=== PATIENT | female | born 1980 | race American Indian/Alaskan Native ===

== ENCOUNTER 2018-03-30 15:23 | Inpatient (IN) | payer MEDICAID, OTHER ==
[2018-03-30] MEDS ORDERED: NACL 0.9% 1000 ML 1,000 ML IV ONE (15:39)
[2018-03-30 15:46] LABS: Basophils # (Auto) 0.1 K/mm3 (0.0-0.1); Basophils % (Auto) 0.8 % (0.0-1.8); Eosinophils # (Auto) 0.1 K/mm3 (0.0-0.4); Hematocrit 35.3 % (30.3-42.9); Hemoglobin 11.3 gm/dl (10.1-14.3); Lymphocytes # (Auto) 3.4 K/mm3 (1.2-5.4); Lymphocytes % (Auto) 27.6 % (13.4-35.0); Mean Corpuscular HGB Conc 32 % (30-34); Mean Corpuscular Volume 71 fl (79-97); Monocytes # (Auto) 0.8 K/mm3 (0.0-0.8); Monocytes % (Auto) 6.5 % (0.0-7.3); Platelet Count 329 K/mm3 (140-440); Red Cell Distribution Width 18.3 % (13.2-15.2)
[2018-03-30 15:52] LABS: Mean Corpuscular Hemoglobin 23 pg (28-32)
[2018-03-30 16:00] LABS: BUN/Creatinine Ratio 7; Blood Urea Nitrogen 6 mg/dL (7-17); Calcium 9.5 mg/dL (8.4-10.2); Hemolysis Index 2
--- NOTE | 2018-03-30 16:03 | Cat Scan Report ---
FINAL REPORT EXAM: CT HEAD/BRAIN WO CON HISTORY: neuro deficits < 6hrs or sx present upon awakening COMPARISON: None. TECHNIQUE: Multiple contiguous axial images were obtained from the skullbase to the vertex without administration of IV contrast. FINDINGS: Brain volume is normal for age. No hemorrhage, mass, mass effect, or midline shift. Ventricles are not enlarged. Normal basal cisterns. No pathologic extra-axial fluid collection. No evidence of acute infarct. No skull fracture. Mucosal thickening of the maxillary sinuses, with polyp versus retention cyst in the right maxillary sinus. Bilateral orbits are grossly intact. IMPRESSION: No acute intracranial abnormality. Mucosal thickening of the maxillary sinuses, with polyp versus retention cyst in the right maxillary sinus. Negative acute findings were discussed with Dr. Cummings by [facility] operations business support associate at 3:59 p.m., Eastern standard time, on 03/30/2018.
[2018-03-30 16:04] LABS: INR 0.94 (0.87-1.13)
[2018-03-30 16:17] LABS: Partial Thromboplastin Time 24.2 Sec. (24.2-36.6)
--- NOTE | 2018-03-30 16:44 | Cat Scan Report ---
FINAL REPORT EXAM: CT ANGIO HEAD HISTORY: stoke symptoms COMPARISON: CT of the performed on 03/30/2018 TECHNIQUE: Multiple contiguous axial images were obtained through the head after administration of IV contrast. 3D reformatted maximal intensity projection images were available for review. FINDINGS: The bilateral internal carotid arteries are patent and normal in caliber. There is no evidence of stenosis or aneurysm. The anterior cerebral arteries and middle cerebral arteries are patent and normal in caliber. The basilar artery is patent and normal in caliber. The bilateral posterior cerebral arteries are patent and normal in caliber. IMPRESSION: Normal CT angiogram of the head.
--- NOTE | 2018-03-30 16:49 | Cat Scan Report ---
FINAL REPORT EXAM: CT ANGIO NECK HISTORY: stoke symptoms COMPARISON: None. TECHNIQUE: Multiple contiguous axial images were obtained through the neck after administration of IV contrast. 3D reconstructions of the vascular structures was also performed. FINDINGS: There is a variant branching pattern of the aortic arch, with an abdomen and right subclavian artery, which courses posterior to the esophagus. The right common carotid artery is patent and normal in caliber. The right internal and external carotid arteries are patent without stenosis, dissection, or aneurysm. There is no significant atherosclerotic disease. The left common carotid artery is patent and normal in caliber. The left internal and external carotid arteries are patent without stenosis, dissection, or aneurysm. There is no significant atherosclerotic disease. The bilateral vertebral arteries are patent. There is a left dominant system. IMPRESSION: Normal CT angiogram of the neck. Apparent right subclavian artery.
--- NOTE | 2018-03-30 19:38 | Emergency Department Report ---
ED Neuro Deficit HPI - General Chief Complaint: Neuro Symptoms/Deficit Stated Complaint: HEADACHE Time Seen by Provider: 03/30/18 15:37 Source: patient Mode of arrival: Ambulatory Limitations: No Limitations - History of Present Illness Initial Comments: Ms. Orozco is 37 yo female who had the sudden onset of right facial numbness, right arm numbness and dysarthia. She had slurred speech. The symptoms occurred suddenly while at a gas station at 1415. No significant medical hx. She drinks alcohol 4 times a week. She did drink whiskey this morning since it was her day off. She does smoke marijuana. Mother had hx of stroke at age 39. She had left neck posterior pain which has resolved. No headache. -: Sudden Location: speech, right face, right arm Presenting Symptoms: Present: Unable to Speak Clearly History of same: No Place: other (retail place) Severity: mild Quality: numb Improves With: time On Anticoagulants: No Context: sudden onset - Related Data Allergies/Adverse Reactions: Allergies Allergy/AdvReac Type Severity Reaction Status Date / Time Penicillins Allergy Unknown Verified 03/30/18 15:28 ED Review of Systems ROS: Stated complaint: HEADACHE Other details as noted in HPI Comment: All other systems reviewed and negative Constitutional: denies: fever, malaise Respiratory: denies: cough Cardiovascular: denies: chest pain ED Past Medical Hx - Past Medical History Previous Medical History?: No - Surgical History Past Surgical History?: Yes Additional Surgical History: - Social History Smoking Status: Current Every Day Smoker Substance Use Type: Alcohol ED Neuro Physical Exam - General Limitations: No Limitations General appearance: alert, in no apparent distress Suspected Stroke: Yes - Head Head exam: Present: atraumatic, normocephalic - Eye Eye exam: Present: normal appearance - ENT ENT exam: Present: mucous membranes moist - Neck Neck exam: Present: normal inspection. Absent: tenderness, meningismus - Respiratory Respiratory exam: Present: normal lung sounds bilaterally. Absent: respiratory distress, wheezes, rales, rhonchi - Cardiovascular Cardiovascular Exam: Present: regular rate, normal rhythm, normal heart sounds. Absent: systolic murmur, diastolic murmur, rubs, gallop - GI/Abdominal GI/Abdominal exam: Present: soft, normal bowel sounds. Absent: distended, tenderness, guarding, rebound - Extremities Exam Extremities exam: Present: normal inspection. Absent: full ROM, tenderness - Back Exam Back exam: Present: normal inspection - Neurological Exam Neurological exam: Present: alert, oriented X3 - NIHSS Assessment Interval: Baseline 1a. Level of Consciousness: alert 1b. LOC Questions: answers correctly 1c. LOC Commands: performs tasks correctly 2. Best Gaze: normal 3. Visual: no visual loss 4. Facial Palsy: normal symmetrical movement 5b. Motor Arm Right: no drift 5a. Motor Arm Left: no drift 6a. Motor Leg Left: no drift 6b. Motor Leg Right: no drift 7. Limb Ataxia: absent 8. Sensory: normal 9. Best Language: no aphasia 10. Dysarthria: normal 11. Extinction/Inattention: no abnormality Total Score: 0 Stroke Severity: No Stroke Symptoms - Psychiatric Psychiatric exam: Present: normal affect, normal mood - Skin Skin exam: Present: warm, dry, intact, normal color. Absent: rash ED Course Vital Signs 03/30/18 03/30/18 03/30/18 15:25 16:06 16:10 Temperature 98.9 F Pulse Rate 109 H 82 Respiratory 18 16 16 Rate Blood Pressure 123/75 Blood Pressure 125/69 [Right] O2 Sat by Pulse 98 100 Oximetry - Lab Data Result diagrams: 03/30/18 15:37 03/30/18 15:37 Lab Results 03/30/18 03/30/18 03/30/18 Range/Units 15:28 15:37 15:37 WBC 12.1 H (4.5-11.0) K/mm3 RBC 5.00 (3.65-5.03) M/mm3 Hgb 11.3 (10.1-14.3) gm/dl Hct 35.3 (30.3-42.9) % MCV 71 L (79-97) fl MCH 23 L (28-32) pg MCHC 32 (30-34) % RDW 18.3 H (13.2-15.2) % Plt Count 329 (140-440) K/mm3 Lymph % (Auto) 27.6 (13.4-35.0) % Wise % (Auto) 6.5 (0.0-7.3) % Eos % (Auto) 1.0 (0.0-4.3) % Baso % (Auto) 0.8 (0.0-1.8) % Lymph # 3.4 (1.2-5.4) K/mm3 Wise # 0.8 (0.0-0.8) K/mm3 Eos # 0.1 (0.0-0.4) K/mm3 Baso # 0.1 (0.0-0.1) K/mm3 Seg Neutrophils % 64.1 (40.0-70.0) % Seg Neutrophils # 7.8 H (1.8-7.7) K/mm3 PT 13.1 (12.2-14.9) Sec. INR 0.94 (0.87-1.13) APTT 24.2 (24.2-36.6) Sec. Thrombin Time (15.1-19.6) Sec. Sodium (137-145) mmol/L Potassium (3.6-5.0) mmol/L Chloride (98-107) mmol/L Carbon Dioxide (22-30) mmol/L Anion Gap mmol/L BUN (7-17) mg/dL Creatinine (0.7-1.2) mg/dL Estimated GFR ml/min BUN/Creatinine Ratio % Glucose (65-100) mg/dL POC Glucose 88 (70-105) Calcium (8.4-10.2) mg/dL Troponin T (0.00-0.029) ng/mL HCG, Qual (Negative) Plasma/Serum Alcohol (0-0.07) % 03/30/18 03/30/18 03/30/18 Range/Units 15:37 15:37 15:48 WBC (4.5-11.0) K/mm3 RBC (3.65-5.03) M/mm3 Hgb (10.1-14.3) gm/dl Hct (30.3-42.9) % MCV (79-97) fl MCH (28-32) pg MCHC (30-34) % RDW (13.2-15.2) % Plt Count (140-440) K/mm3 Lymph % (Auto) (13.4-35.0) % Wise % (Auto) (0.0-7.3) % Eos % (Auto) (0.0-4.3) % Baso % (Auto) (0.0-1.8) % Lymph # (1.2-5.4) K/mm3 Wise # (0.0-0.8) K/mm3 Eos # (0.0-0.4) K/mm3 Baso # (0.0-0.1) K/mm3 Seg Neutrophils % (40.0-70.0) % Seg Neutrophils # (1.8-7.7) K/mm3 PT (12.2-14.9) Sec. INR (0.87-1.13) APTT (24.2-36.6) Sec. Thrombin Time 16.9 (15.1-19.6) Sec. Sodium 137 (137-145) mmol/L Potassium 3.8 (3.6-5.0) mmol/L Chloride 99.5 (98-107) mmol/L Carbon Dioxide 20 L (22-30) mmol/L Anion Gap 21 mmol/L BUN 6 L (7-17) mg/dL Creatinine 0.9 (0.7-1.2) mg/dL Estimated GFR > 60 ml/min BUN/Creatinine Ratio 7 % Glucose 93 (65-100) mg/dL POC Glucose (70-105) Calcium 9.5 (8.4-10.2) mg/dL Troponin T < 0.010 (0.00-0.029) ng/mL HCG, Qual (Negative) Plasma/Serum Alcohol 0.01 (0-0.07) % 03/30/ Range/Units 15:48 WBC (4.5-11.0) K/mm3 RBC (3.65-5.03) M/mm3 Hgb (10.1-14.3) gm/dl Hct (30.3-42.9) % MCV (79-97) fl MCH (28-32) pg MCHC (30-34) % RDW (13.2-15.2) % Plt Count (140-440) K/mm3 Lymph % (Auto) (13.4-35.0) % Wise % (Auto) (0.0-7.3) % Eos % (Auto) (0.0-4.3) % Baso % (Auto) (0.0-1.8) % Lymph # (1.2-5.4) K/mm3 Wise # (0.0-0.8) K/mm3 Eos # (0.0-0.4) K/mm3 Baso # (0.0-0.1) K/mm3 Seg Neutrophils % (40.0-70.0) % Seg Neutrophils # (1.8-7.7) K/mm3 PT (12.2-14.9) Sec. INR (0.87-1.13) APTT (24.2-36.6) Sec. Thrombin Time (15.1-19.6) Sec. Sodium (137-145) mmol/L Potassium (3.6-5.0) mmol/L Chloride (98-107) mmol/L Carbon Dioxide (22-30) mmol/L Anion Gap mmol/L BUN (7-17) mg/dL Creatinine (0.7-1.2) mg/dL Estimated GFR ml/min BUN/Creatinine Ratio % Glucose (65-100) mg/dL POC Glucose (70-105) Calcium (8.4-10.2) mg/dL Troponin T (0.00-0.029) ng/mL HCG, Qual Negative (Negative) Plasma/Serum Alcohol (0-0.07) % - EKG Data -: EKG Interpreted by Me EKG shows normal: sinus rhythm, axis, intervals, QRS complexes, ST-T waves Rate: normal Interpretation: no acute changes - Radiology Data NO acute process CT head, CTA head/neck WNL - Medical Decision Making Ms. Orozco presents with TIA symptoms which have resolved. D Dr. Lopez neurologist evaluated the patient and recommended admission for TIA workup considering patient is at risk for hypercoagulable disorder. Considering patient had a mother with CVA at young age. TPA not indicated considering patient's her completely resolved symptoms. I do not suspect intracranial hemorrhage such as SAH with fleeting neck pain. Patient also has now developed a mild frontal headache which will be observed. She appears well otherwise. Critical Care Time: Yes Critical care time in (mins) excluding proc time.: 40 Critical care attestation.: If time is entered above; I have spent that time in minutes in the direct care of this critically ill patient, excluding procedure time. 40 minutes of critical care time excluding procedures for use and care to patient. I came to bedside immediately upon patient's arrival. I are spoke with radiology staff. I sopke with radiologist, neurologist and hospitalist to coordinate care. ED Disposition Clinical Impression: TIA (transient ischemic attack) Disposition: OP ADMIT IP TO THIS HOSP Is pt being admited?: Yes Does the pt Need Aspirin: Yes Condition: Stable
[2018-03-30] MEDS ORDERED: BABY ASPIRIN PO ONE (19:47)
[2018-03-30 20:36] LABS: Amphetamine Screen,Urine PRESUMPTIVE NEGATIVE; Benzodiazepines Screen,Urine PRESUMPTIVE NEGATIVE; Cocaine Screen,Urine PRESUMPTIVE NEGATIVE; Methadone Screen,Urine PRESUMPTIVE NEGATIVE; Opiate Screen,Urine PRESUMPTIVE NEGATIVE
[2018-03-30 21:06] LABS: Cannabinoid Screen,Urine PRESUMPTIVE POSITIVE
[2018-03-30] MEDS ORDERED: SODIUM CHLORIDE FLUSH SYRINGE 10 ML IV PRN (23:12)
[2018-03-30] MEDS ORDERED: DILAUDID IV PRN (23:12)
[2018-03-30] MEDS ORDERED: ZOFRAN IV PRN (23:12)
[2018-03-30] MEDS ORDERED: PERCOCET 5/325 PO PRN (23:12)
[2018-03-30] MEDS ORDERED: TYLENOL PO PRN (23:12)
--- NOTE | 2018-03-30 23:12 | Event Note ---
Date: 03/30/18 See dictated history and physical and the reports TIA-resolved MRI in a.m. Neuro consult
[2018-03-30] MEDS ORDERED: SODIUM CHLORIDE FLUSH SYRINGE 10 ML INJ PRN (23:20)
[2018-03-30] MEDS ORDERED: NACL 0.9% 1000 ML 1,000 ML IV SCH (23:45)
[2018-03-31 06:17] LABS: BUN/Creatinine Ratio 6; Blood Urea Nitrogen 5 mg/dL (7-17); Calcium 9.1 mg/dL (8.4-10.2); HDL Cholesterol 41 mg/dL (40-59); Hemolysis Index 7; LDL Cholesterol,Direct 100 mg/dL (50-130)
[2018-03-31 07:09] VITALS: BP 111/60
--- NOTE | 2018-03-31 07:11 | History and Physical Report ---
CHIEF COMPLAINT: Right-sided facial numbness and right arm numbness and slurred speech, which started around 2:15 p.m. HISTORY OF PRESENT ILLNESS: A 37-year-old black female comes in to the Emergency Room for sudden onset of right facial numbness, right arm numbness and slurred speech. Symptoms suddenly appeared while at a gas station at 1415 hours. The patient has no significant past medical history. No hypertension, no diabetes. Her mother had stroke at age 39 and at 55 years. The patient does alcohol on a regular basis and smoke marijuana. No chest pain. Symptoms resolved after 1 hour. The patient says that she is completely normal. No exacerbating or relieving factors. PAST MEDICAL HISTORY: None. PAST SURGICAL HISTORY: . SOCIAL HISTORY: Current everyday smoker. Alcohol 4 days a week, marijuana. FAMILY HISTORY: Hypertension and CVA. REVIEW OF SYSTEMS: Significant for right facial numbness, slurred speech and right arm numbness, which resolved. Otherwise, 14-point review of systems is essentially negative. PHYSICAL EXAMINATION: GENERAL: Middle-aged female, lying in bed comfortably, talking to family on phone. VITAL SIGNS: Temperature is 98.9, pulse is 109, respirations are 18, blood pressure 123/75. HEENT: Unremarkable. No facial droop. NECK: Supple, no carotid artery bruit, no thyromegaly. LUNGS: Clear to auscultation and percussion. Good air entry. CARDIOVASCULAR SYSTEM: S1, S2 heard. No gallop, no murmur, no rub. Apical impulse in left fifth intercostal space in midclavicular line. ABDOMEN: Soft and benign. No hepatosplenomegaly. No guarding, no rigidity. Hernial orifices are normal. EXTREMITIES: Good pedal pulses. No pedal edema. CENTRAL NERVOUS SYSTEM: Alert and oriented x 4, no focal deficits. Mixer Pigment is normal. Strength is 5/5 in all 4 extremities. Cranial nerves are normal. No diplopia. No nasal regurgitation of fluids. SKIN: Normal. LABORATORY DATA: Significant for white count of 12,100, hemoglobin of 11.3, hematocrit of 35.3, platelet count 329,000. Electrolytes are normal, bicarb is slightly low at 20. Troponin is normal. Urine positive for marijuana. Alcohol level was 0.01. ASSESSMENT AND PLAN: 1. Transient ischemic attack. The patient's symptoms definitely qualify for transient ischemic attack, they resolved. The patient also has a strong history of cerebrovascular accidents in the family at early age. Will admit for transient ischemic attack and workup for transient ischemic attack. Will get MRI, MRA and carotid duplex scan and also echocardiogram tomorrow. Discharge on aspirin if negative. Will defer to Neurology whether the patient needs Plavix. 2. Obesity. The patient counseled. 3. Nicotine dependence. The patient counseled. Ten minutes spent in counseling about nicotine, alcohol, and marijuana. 4. Deep venous thrombosis prophylaxis, Lovenox 40 mg subcutaneous daily. JOB# [id number] CRYSTAL/ELVA
[2018-03-31] MEDS ORDERED: ASPIRIN PO SCH (10:00)
[2018-03-31] MEDS ORDERED: LOVENOX SUB-Q SCH (10:00)
[2018-03-31] MEDS ORDERED: PEPCID PO SCH (10:00)
[2018-03-31] MEDS ORDERED: SODIUM CHLORIDE FLUSH SYRINGE 10 ML IV SCH (10:00)
--- NOTE | 2018-03-31 16:17 | Discharge Summary ---
Providers - Providers Date of Admission: 03/30/18 18:58 Attending physician: GERMAINE MCGOWAN 03/30/18 23:12 Consult to Physician [CONS] Routine Comment: Consulting Provider: ROSA SPRINGER Physician Instructions: Reason For Exam: TIA 03/30/18 23:20 Occupational Therapy Evaluate and Treat [CONS] Routine Comment: Reason For Exam: Neuro deficits Physical Therapy Evaluation and Treat [CONS] Routine Comment: Reason For Exam: Neuro deficits Primary care physician: NEUROLOGY SPECIALIST Hospitalization Reason for admission: TIA r/o acute stroke Condition: Stable Hospital course: Final diagnosis: -TIA, stable -Acute metabolic acidosis, resolved -Morbid obesity with BMI of 44.3 On admission patient was placed on stroke protocol. Subsequent plan was to do further investigative testings with MRI brain and MRA head and neck. However patient signed AGAINST MEDICAL ADVICE. She understood the implications of her action. Disposition: [id number] LEFT AGAINST MED ADVICE Time spent for discharge: 25 minutes Core Measure Documentation - Palliative Care Palliative Care/ Comfort Measures: Not Applicable - Core Measures Any of the following diagnoses?: none Exam - Constitutional Vitals: Temp Pulse Resp BP Pulse Ox 98.0 F 72 16 111/60 98 03/31/18 05:57 03/31/18 05:57 03/31/18 05:57 03/31/18 05:57 03/31/18 05:57 General appearance: Present: no acute distress, other (morbidly obese) - EENT Eyes: Present: PERRL, EOM intact ENT: hearing intact, clear oral mucosa - Neck Neck: Present: supple - Respiratory Respiratory effort: normal Respiratory: bilateral: CTA - Cardiovascular Rhythm: regular Heart Sounds: Present: S1 & S2 - Extremities Extremities: No edema - Abdominal General gastrointestinal: Present: soft, non-tender, normal bowel sounds - Neurologic Neurologic: CNII-XII intact Plan Forms: AMA Form
== END 2018-03-31 11:00 | disposition left against medical advice (07) | DRG 69 ==
LOC: ED 15:23 → 4A 18:58 → 3A 23:36
PROVIDERS: ADMIT Internal Medicine; ATTEND Internal Medicine
DX: G45.9 Transient cerebral ischemic attack, unspecified (principal); Z68.41 Body mass index [BMI] 40.0-44.9, adult; E87.2 Acidosis; Z53.21 Procedure and treatment not carried out due to patient leaving prior to being seen by health care provider; E66.01 Morbid (severe) obesity due to excess calories; R47.81 Slurred speech; R29.810 Facial weakness; F17.200 Nicotine dependence, unspecified, uncomplicated; Z82.3 Family history of stroke; Z82.49 Family history of ischemic heart disease and other diseases of the circulatory system; Z98.891 History of uterine scar from previous surgery; Z88.0 Allergy status to penicillin
CPT/HCPCS: 36415; 70450; 70496; 70498; 80048; 80061; 80307; 80320; 82962; 83036; 84484; 84703; 85025; 85610; 85670; 85730; 93005; 93010; 96360; 96361; G0480; J7030; Q9967

== ENCOUNTER 2019-11-23 12:58 | Outpatient (CLI) | payer MEDICAID ==
--- NOTE | 2019-11-23 15:34 | Ultrasound Report ---
ULTRASOUND BIOPHYSICAL PROFILE AND LIMITED OB PELVIC ULTRASOUND INDICATION / CLINICAL INFORMATION: POST-DATES; WELLBEING. COMPARISON: None available. FINDINGS: BREATHING MOVEMENT = 2 GROSS BODY MOVEMENT = 2 TONE = 2 QUALITATIVE AMNIOTIC FLUID VOLUME = 0 TOTAL BIOPHYSICAL SCORE = 6/8 AMNIOTIC FLUID INDEX (cm) = 1.45 PRESENTATION: Cephalic. HEART RATE (beats per minute): 138 IMPRESSION: biophysical profile = 8 . Oligohydramnios. Signer Name: Rafa Rivera MD Signed: 11/23/2019 3:29 PM Workstation Name: [id number]
[2019-11-23 15:50] LABS: Amphetamine Screen,Urine PRESUMPTIVE NEGATIVE; Benzodiazepines Screen,Urine PRESUMPTIVE NEGATIVE; Cannabinoid Screen,Urine PRESUMPTIVE NEGATIVE; Cocaine Screen,Urine PRESUMPTIVE NEGATIVE; Methadone Screen,Urine PRESUMPTIVE NEGATIVE; Opiate Screen,Urine PRESUMPTIVE NEGATIVE
--- NOTE | 2019-11-23 16:26 | Event Note ---
Date: 11/23/19 39yo G 2 P 1 0 0 1 @ 41 weeks 1 day with h/o C/S x1. She was seen at the office earlier today and sent to the hospital for BPP. Patient notified ultrasound indicates BPP is 6/8 with BERYL of 1.5cm. Discussed risks of oligohydramnios including stillbirth. She was informed she will need a repeat C/S today. Patient verbalized understanding but insists she has to go home first and make childcare arrangements for her 8yo daughter. Patient left the hospital AMA and plans to return later tonight for delivery.
== END 2019-11-23 16:20 | disposition left against medical advice (07) ==
LOC: TRG 12:58 → APU 12:58 → TRG 16:20
PROVIDERS: ATTEND Obstetrics & Gynecology
DX: O48.0 Post-term pregnancy (principal); Z3A.41 41 weeks gestation of pregnancy
CPT/HCPCS: 59025; 76815; 76819; 80307

== ENCOUNTER 2020-08-22 15:25 | Observation (INO) | payer MEDICAID ==
--- NOTE | 2020-08-22 16:26 | Event Note ---
ED Screening Note Date of service: 08/22/20 Time: 16:25 ED Screening Note: 39-year-old -[place] female presents to the emergency room for acute chest pain and pain that travels down her right leg. Patient states that she recently had a baby 8 months ago and was prescribed anticoagulant medication but never started it. Patient states that her chest pain is around her breast area and wraps around to her back. Patient reports she had hypotension and bradycardia with her . This initial assessment/diagnostic orders/clinical plan/treatment(s) is/are subject to change based on patients health status, clinical progression and re- assessment by fellow clinical providers in the ED. Further treatment and workup at subsequent clinical providers discretion. Patient/guardian urged not to elope from the ED as their condition may be serious if not clinically assessed and managed. Initial orders include:
[2020-08-22 16:39] LABS: Basophils % (Auto) 0.5 % (0.0-1.8); Eosinophils # (Auto) 0.1 K/mm3 (0.0-0.4); Eosinophils % (Auto) 1.5 % (0.0-4.3); Hematocrit 39.3 % (30.3-42.9); Hemoglobin 12.7 gm/dl (10.1-14.3); Lymphocytes % (Auto) 23.2 % (13.4-35.0); Mean Corpuscular HGB Conc 32 % (30-34); Mean Corpuscular Volume 74 fl (79-97); Monocytes # (Auto) 0.6 K/mm3 (0.0-0.8); Monocytes % (Auto) 6.8 % (0.0-7.3); Platelet Count 250 K/mm3 (140-440); Red Blood Count 5.35 M/mm3 (3.65-5.03); Red Cell Distribution Width 15.1 % (13.2-15.2)
[2020-08-22 16:59] LABS: Alanine Aminotransferase 17 units/L (7-56); Albumin 4.4 g/dL (3.9-5); Blood Urea Nitrogen 8 mg/dL (7-17); Calcium 9.5 mg/dL (8.4-10.2); Hemolysis Index 2
[2020-08-22 17:05] LABS: BUN/Creatinine Ratio 11
--- NOTE | 2020-08-22 17:34 | XRay Report ---
CHEST PA AND LATERAL VIEWS INDICATION: chest pain. COMPARISON: None FINDINGS: Support devices: None Heart: Normal Lungs/Pleura: No acute pulmonary or pleural findings. IMPRESSION: 1. No significant abnormality. Signer Name: Serge Medina MD Signed: 08/22/2020 5:29 PM Workstation Name: [id number]
[2020-08-22] MEDS ORDERED: ONDANSETRON 4 MG/2 ML INJ IV ONE (20:09)
[2020-08-22] MEDS ORDERED: fentaNYL 100 MCG/2 ML INJ IV ONE (20:09)
[2020-08-22] MEDS ORDERED: ASPIRIN 325 MG TAB PO ONE (20:10)
--- NOTE | 2020-08-22 20:16 | Emergency Department Report ---
HPI - General Chief Complaint: Chest Pain Time Seen by Provider: 08/22/20 15:40 - HPI HPI: Room 39 The patient is a 39-year-old female present with a chief complaint of chest pain. The patient states this afternoon at approximately 14: 30 she felt pain in her right lower extremity. Patient said the pain felt as though was moving down and then up her leg into her chest. Patient states she then developed chest tightness but denies shortness of breath, nausea/vomiting or diaphoresis. Patient denies fever cough or pleurisy. Patient denies known contact with COVID-19 patients. Patient states she developed some tingling to the right face and both hands associated with her chest pain. Patient currently gives her chest pain a score of 5-6/10. Patient states her last stress test occurred over 5 years ago and she has never had a cardiac catheterization. The patient states approximately 9 months ago she was and her EAP COUNSELOR wanted to start her on Lovenox. The patient states she is not certain of the indication for anticoagulation but she states that she never initiated it. ED Past Medical Hx - Surgical History Past Surgical History?: Yes Additional Surgical History: - Family History Family history: no significant - Social History Smoking Status: Current Every Day Smoker (1/7 pack/day) Substance Use Type: Alcohol (Rarely), Marijuana ED Review of Systems ROS: Stated complaint: CHEST PAIN Other details as noted in HPI Constitutional: denies: diaphoresis Eyes: denies: eye pain ENT: denies: throat pain Respiratory: denies: cough, shortness of breath Cardiovascular: chest pain Endocrine: no symptoms reported Gastrointestinal: denies: nausea, vomiting Genitourinary: denies: dysuria Musculoskeletal: myalgia Neurological: denies: headache Physical Exam - Physical Exam Vital Signs: Vital Signs 08/22/20 15:33 Temperature 98.9 F Pulse Rate 101 H Respiratory 18 Rate Blood Pressure 131/88 O2 Sat by Pulse 98 Oximetry Physical Exam: GENERAL: The patient is well-developed well-nourished female lying on stretcher not appearing to be in acute distress. [] HEENT: Normocephalic. Atraumatic. Extraocular motions are intact. Patient has moist mucous membranes. NECK: Supple. Trachea midline CHEST/LUNGS: Clear to auscultation. There is no respiratory distress noted. HEART/CARDIOVASCULAR: Regular. There is no tachycardia. There is no gallop rub or murmur. ABDOMEN: Abdomen is soft, nontender. Patient has normal bowel sounds. There is no abdominal distention. SKIN: There is no rash. There is no edema. There is no diaphoresis. NEURO: The patient is awake, alert, and oriented. The patient is cooperative. The patient has normal speech MUSCULOSKELETAL: There is no right calf tenderness. There is no evidence of acute injury. ED Course Vital Signs 08/22/20 15:33 Temperature 98.9 F Pulse Rate 101 H Respiratory 18 Rate Blood Pressure 131/88 O2 Sat by Pulse 98 Oximetry ED Medical Decision Making - Lab Data Result diagrams: 08/22/20 16:28 08/22/20 16:28 Laboratory Tests 08/22/20 08/22/20 08/22/20 16:28 16:28 16:28 WBC 8.8 RBC 5.35 H Hgb 12.7 Hct 39.3 MCV 74 L MCH 24 L MCHC 32 RDW 15.1 Plt Count 250 Lymph % (Auto) 23.2 Foster % (Auto) 6.8 Eos % (Auto) 1.5 Baso % (Auto) 0.5 Lymph # (Auto) 2.0 Foster # (Auto) 0.6 Eos # (Auto) 0.1 Baso # (Auto) 0.0 Seg Neutrophils % 68.0 Seg Neutrophils # 6.0 D-Dimer Sodium 138 Potassium 4.0 Chloride 101.5 Carbon Dioxide 27 Anion Gap 14 BUN 8 Creatinine 0.7 Estimated GFR > 60 BUN/Creatinine Ratio 11 Glucose 97 Calcium 9.5 Total Bilirubin 0.30 AST 23 ALT 17 Alkaline Phosphatase 98 Troponin T < 0.010 Total Protein 7.3 Albumin 4.4 Albumin/Globulin Ratio 1.5 HCG, Qual Negative 08/22/20 20:16 WBC RBC Hgb Hct MCV MCH MCHC RDW Plt Count Lymph % (Auto) Foster % (Auto) Eos % (Auto) Baso % (Auto) Lymph # (Auto) Foster # (Auto) Eos # (Auto) Baso # (Auto) Seg Neutrophils % Seg Neutrophils # D-Dimer 140.38 Sodium Potassium Chloride Carbon Dioxide Anion Gap BUN Creatinine Estimated GFR BUN/Creatinine Ratio Glucose Calcium Total Bilirubin AST ALT Alkaline Phosphatase Troponin T Total Protein Albumin Albumin/Globulin Ratio HCG, Qual Laboratory Tests 08/22/20 08/22/20 08/22/20 16:28 16:28 16:28 WBC 8.8 RBC 5.35 H Hgb 12.7 Hct 39.3 MCV 74 L MCH 24 L MCHC 32 RDW 15.1 Plt Count 250 Lymph % (Auto) 23.2 Foster % (Auto) 6.8 Eos % (Auto) 1.5 Baso % (Auto) 0.5 Lymph # (Auto) 2.0 Foster # (Auto) 0.6 Eos # (Auto) 0.1 Baso # (Auto) 0.0 Seg Neutrophils % 68.0 Seg Neutrophils # 6.0 D-Dimer Sodium 138 Potassium 4.0 Chloride 101.5 Carbon Dioxide 27 Anion Gap 14 BUN 8 Creatinine 0.7 Estimated GFR > 60 BUN/Creatinine Ratio 11 Glucose 97 Calcium 9.5 Total Bilirubin 0.30 AST 23 ALT 17 Alkaline Phosphatase 98 Troponin T < 0.010 Total Protein 7.3 Albumin 4.4 Albumin/Globulin Ratio 1.5 HCG, Qual Negative 08/22/20 20:16 WBC RBC Hgb Hct MCV MCH MCHC RDW Plt Count Lymph % (Auto) Foster % (Auto) Eos % (Auto) Baso % (Auto) Lymph # (Auto) Foster # (Auto) Eos # (Auto) Baso # (Auto) Seg Neutrophils % Seg Neutrophils # D-Dimer 140.38 Sodium Potassium Chloride Carbon Dioxide Anion Gap BUN Creatinine Estimated GFR BUN/Creatinine Ratio Glucose Calcium Total Bilirubin AST ALT Alkaline Phosphatase Troponin T Total Protein Albumin Albumin/Globulin Ratio HCG, Qual - EKG Data -: EKG Interpreted by Me EKG shows normal: sinus rhythm Rate: normal - EKG Data When compared to previous EKG there are: previous EKG unavailable Interpretation: nonspecific ST-T wave christiano - Radiology Data Radiology results: report reviewed (Chest x-ray), image reviewed (Chest x-ray) interpreted by me: Chest x-ray-no focal infiltrates, no pneumothorax. No foreign body seen Findings [facility] [address] [place] [address] XRay Report Signed Patient: KORI REN MR#: [id number] : 1980 Acct:[id number] Age/Sex: 39 / F ADM Date: 08/22/20 Loc: ED Attending Dr: Ordering Physician: MIRI SANCHES Date of Service: 08/22/20 Procedure(s): XR brisa st routine 2V Accession Number(s): [id number] cc: MIRI Gannon Time In Minutes: CHEST PA AND LATERAL VIEWS INDICATION: chest pain. COMPARISON: None FINDINGS: Support devices: None Heart: Normal Lungs/Pleura: No acute pulmonary or pleural findings. IMPRESSION: 1. No significant abnormality. Signer Name: Serge Medina MD Signed: 08/22/2020 5:29 PM Workstation Name: [id number] Transcribed By: TM Dictated By: Serge Medina MD Electronically Authenticated By: Serge Medina MD Signed Date/Time: 08/22/201728 DD/ 28 TD/TT: - Differential Diagnosis ACS, PE, pericarditis, GERD Critical care attestation.: If time is entered above; I have spent that time in minutes in the direct care of this critically ill patient, excluding procedure time. ED Disposition Clinical Impression: Chest pain Disposition: OP ADMIT IP TO THIS HOSP Is pt being admited?: Yes Does the pt Need Aspirin: Yes Condition: Fair Instructions: Chest Pain (ED) Referrals: PRIMARY CARE, [Primary Care Provider] - 3-5 Days Time of Disposition: 21:25 (Hospitalist notified) HEART Score - HEART Score History: Highly suspicious EKG: Non-specific Age: < 45 Risk factors: 1-2 risk factors Troponin: Troponin T < 0.010 ng/mL (0.00-0.029) 08/22/20 16:28 Troponin: < normal limit HEART Score: 4
[2020-08-22] MEDS ORDERED: METOCLOPRAMIDE 10 MG/2 ML INJ IV PRN (21:47)
[2020-08-22] MEDS ORDERED: traMADol 50 MG TAB PO PRN (21:47)
[2020-08-22] MEDS ORDERED: ACETAMINOPHEN 325 MG TAB PO PRN ×2 (21:47)
[2020-08-22] MEDS ORDERED: ONDANSETRON 4 MG/2 ML INJ IV PRN (21:47)
[2020-08-22] MEDS ORDERED: IPRATROPIUM/ALBUTEROL SULFATE 3 ML AMPUL.NEB IH PRN (21:47)
[2020-08-22] MEDS ORDERED: ALBUTEROL 2.5 MG/3 ML NEBU IH PRN (21:47)
--- NOTE | 2020-08-22 22:00 | History and Physical Report ---
History of Present Illness Date of examination: 08/22/20 Date of admission: 08/22/20 21:25 Chief complaint: chest pain History of present illness: The patient is a 39-year-old female present with a chief complaint of chest pain. The patient states this afternoon at approximately 14: 30 she felt pain in her right lower extremity. Patient said the pain felt as though was moving down and then up her leg into her chest. Patient states she then developed chest tightness but denies shortness of breath, nausea/vomiting or diaphoresis. Patient denies fever cough or pleurisy. Patient denies known contact with COVID-19 patients. Patient states she developed some tingling to the right face and both hands associated with her chest pain. Patient currently gives her chest pain a score of 5-6/10. Patient states her last stress test occurred over 5 years ago and she has never had a cardiac catheterization. The patient states approximately 9 months ago she was and her SIZE TESTER wanted to start her on Lovenox. The patient states she is not certain of the indication for anticoagulation but she states that she never initiated it. Patient seen at bedside in ED. Patient alert and oriented x3. She reports chest pain that feels tight. She denies shortness of breath, nausea and vomiting. She admits tobacco use but denies illicit drug use except marijuana sometimes. Patient admits anxiety sometimes and rare reflux ED work-up shows WBC 8.8, hemoglobin 12.7, D-dimer 140.36, sodium level 138 potassium 4.0, creatinine 0.7 and glucose 97 Manager Eligibility consulted, echo ordered Chest x-ray was done no acute findings troponin done -negative results Patient is admitted to rule out coronary problem Past History Past Medical History: No medical history Past Surgical History: Social history: smoking. denies: alcohol abuse, IV drug use Family history: diabetes (in mother), hypertension Medications and Allergies Allergies Allergy/AdvReac Type Severity Reaction Status Date / Time Penicillins Allergy Unknown Verified 11/23/19 13:22 Active Meds: Active Medications Acetaminophen (Acetaminophen 325 Mg Tab) 650 mg PO Q4H PRN PRN Reason: Pain MILD(1-3)/Fever >100.5/MAX Acetaminophen (Acetaminophen 325 Mg Tab) 650 mg PO Q6H PRN PRN Reason: Pain, Mild (1-3) Albuterol (Albuterol 2.5 Mg/3 Ml Nebu) 2.5 mg IH Q4HRT PRN PRN Reason: Shortness Of Breath Albuterol/Ipratropium (Ipratropium/Albuterol Sulfate 3 Ml Ampul.Neb) 1 ampul IH Q6HRT PRN PRN Reason: Shortness Of Breath Famotidine (Famotidine 20 Mg/2 Ml Inj) 20 mg IV BID SOSA Metoclopramide HCl (Metoclopramide 10 Mg/2 Ml Inj) 10 mg IV Q6H PRN PRN Reason: Nausea And Vomiting Ondansetron HCl (Ondansetron 4 Mg/2 Ml Inj) 4 mg IV Q8H PRN PRN Reason: Nausea And Vomiting Sodium Chloride (Sodium Chloride 0.9% 10 Ml Flush Syringe) 10 ml IV BID SOSA Sodium Chloride (Sodium Chloride 0.9% 10 Ml Flush Syringe) 10 ml IV PRN PRN PRN Reason: LINE FLUSH Sodium Chloride (Sodium Chloride 0.9% 10 Ml Flush Syringe) 10 ml IV PRN PRN PRN Reason: LINE FLUSH Tramadol HCl (Tramadol 50 Mg Tab) 50 mg PO Q4H PRN PRN Reason: Pain, Moderate (4-6) Review of Systems Ears, nose, mouth and throat: no epistaxis Breasts: no discharge Cardiovascular: chest pain Respiratory: no wheezing Gastrointestinal: no abdominal pain, no melena Genitourinary Female: no dyspareunia Integumentary: no rash, no pruritis Neurological: no vertigo Psychiatric: anxiety, depression Endocrine: no cold intolerance Hematologic/Lymphatic: no easy bruising, no easy bleeding Allergic/Immunologic: no urticaria Exam - Constitutional Vitals: Temp Pulse Resp BP Pulse Ox 98.9 F 101 H 18 131/88 98 08/22/20 15:33 08/22/20 15:33 08/22/20 15:33 08/22/20 15:33 08/22/20 15:33 General appearance: Present: mild distress, obese - EENT Eyes: Present: PERRL ENT: hearing intact, clear oral mucosa - Neck Neck: Present: supple, normal ROM - Respiratory Respiratory effort: normal Respiratory: bilateral: CTA - Cardiovascular Heart rate: 101 Heart Sounds: Present: S1 & S2. Absent: rub, click - Extremities Extremities: pulses symmetrical, No edema Peripheral Pulses: within normal limits - Abdominal General gastrointestinal: Present: soft, non-tender, non-distended, normal bowel sounds Female genitourinary: Present: normal - Integumentary Integumentary: Present: clear, warm, dry - Musculoskeletal Musculoskeletal: gait normal, strength equal bilaterally - Psychiatric Psychiatric: appropriate mood/affect, intact judgment & insight - Neurologic Neurologic: CNII-XII intact, moves all extremities - Allied Health Allied health notes reviewed: nursing HEART Score - HEART Score EKG: Non-specific Age: < 45 Risk factors: 1-2 risk factors Troponin: Troponin T < 0.010 ng/mL (0.00-0.029) 08/22/20 16:28 Troponin: < normal limit Results - Labs CBC & Chem 7: 08/23/20 05:55 08/22/20 22:58 Labs: Abnormal lab results 08/22/20 Range/Units 16:28 RBC 5.35 H (3.65-5.03) M/mm3 MCV 74 L (79-97) fl MCH 24 L (28-32) pg Assessment and Plan - Patient Problems (1) Chest pain Current Visit: Yes Status: Acute Plan to address problem: Chest x-ray-no acute finding Monitor cardiac Enzymes-Troponin -normal. Blood pressure 120/64. patient denies history of chest pain. ECHO-result pending Manager Eligibility consult (2) Tobacco abuse Current Visit: Yes Status: Acute Plan to address problem: discussed tobacco use cessation Cardiovascular and neoplasm syndrome of tobacco use explained to patient Patient voiced understanding (3) Anxiety Current Visit: Yes Status: Acute Plan to address problem: start raak-[id number] as needed patient declines antidepressant (4) DVT prophylaxis Current Visit: Yes Status: Acute Plan to address problem: lovenox
[2020-08-22] MEDS ORDERED: ALPRAZolam 0.25 MG TAB PO PRN (22:21)
[2020-08-22 23:30] LABS: Basophils % (Auto) 0.4 % (0.0-1.8); Eosinophils # (Auto) 0.2 K/mm3 (0.0-0.4); Eosinophils % (Auto) 2.1 % (0.0-4.3); Hematocrit 36.7 % (30.3-42.9); Hemoglobin 11.9 gm/dl (10.1-14.3); Lymphocytes # (Auto) 2.7 K/mm3 (1.2-5.4); Lymphocytes % (Auto) 35.9 % (13.4-35.0); Mean Corpuscular HGB Conc 32 % (30-34); Mean Corpuscular Volume 73 fl (79-97); Monocytes # (Auto) 0.5 K/mm3 (0.0-0.8); Platelet Count 233 K/mm3 (140-440); Red Blood Count 5.05 M/mm3 (3.65-5.03); Red Cell Distribution Width 14.8 % (13.2-15.2)
[2020-08-22] MEDS: FAMOTIDINE 20 MG/2 ML INJ IV SCH (23:55)
[2020-08-23 00:05] LABS: Blood Urea Nitrogen 8 mg/dL (7-17); Calcium 9.3 mg/dL (8.4-10.2); Hemolysis Index 2
[2020-08-23 00:11] LABS: BUN/Creatinine Ratio 13
[2020-08-23 02:18] LABS: Chol/HDL Ratio 2.55 %
[2020-08-23 06:28] LABS: Basophils % (Auto) 0.5 % (0.0-1.8); Eosinophils # (Auto) 0.2 K/mm3 (0.0-0.4); Eosinophils % (Auto) 2.6 % (0.0-4.3); Hematocrit 38.4 % (30.3-42.9); Hemoglobin 12.3 gm/dl (10.1-14.3); Lymphocytes # (Auto) 2.1 K/mm3 (1.2-5.4); Lymphocytes % (Auto) 30.2 % (13.4-35.0); Mean Corpuscular HGB Conc 32 % (30-34); Mean Corpuscular Volume 74 fl (79-97); Monocytes # (Auto) 0.6 K/mm3 (0.0-0.8); Platelet Count 217 K/mm3 (140-440); Red Blood Count 5.19 M/mm3 (3.65-5.03); Red Cell Distribution Width 15.1 % (13.2-15.2)
[2020-08-23 06:49] LABS: Alanine Aminotransferase 15 units/L (7-56); Blood Urea Nitrogen 7 mg/dL (7-17); Calcium 9.1 mg/dL (8.4-10.2); Hemolysis Index 6
[2020-08-23 06:57] LABS: BUN/Creatinine Ratio 10
--- NOTE | 2020-08-23 07:59 | Discharge Summary ---
Providers - Providers Date of Admission: 08/22/20 21:25 Attending physician: TERRIE PRADHAN MD 08/22/20 Consult to Cardiac Rehabilitation [CONS] Routine Reason For Exam: Phase I 08/22/20 22:22 Consult to Physician [CONS] Routine Comment: Consulting Provider: MAHIN PEREYRA Physician Instructions: Reason For Exam: chest pain Primary care physician: POLICY SERVICES REPRESENTATIVE Hospitalization Condition: Stable Disposition: DC-01 TO HOME OR SELFCARE Exam - Constitutional Vitals: Temp Pulse Resp BP Pulse Ox 98.4 F 52 L 14 115/66 99 08/23/20 03:31 08/23/20 03:31 08/23/20 03:31 08/23/20 03:31 08/23/20 03:31 Plan Activity: advance as tolerated Diet: low fat Special Instructions: record daily weights, record daily BP diary, smoking cessation (including marijuna) Additional Instructions: recommend outpatient stress test with manager client support Follow up with: PRIMARY CAREMD [Primary Care Provider] - 3-5 Days MAHIN PEREYRA MD [Staff Physician] - 7 Days Prescriptions: Aspirin [Aspirin BABY CHEW TAB] 81 mg PO QDAY #7 tab.chew Nicotine [Habitrol] 14 mg TD DAILY #30 patch
[2020-08-23 08:17] VITALS: BP 98/52
[2020-08-23] MEDS: FAMOTIDINE 20 MG/2 ML INJ IV SCH (09:07)
[2020-08-23] MEDS ORDERED: ENOXAPARIN 40 MG/0.4 ML INJ SUB-Q SCH (10:00)
--- NOTE | 2020-08-23 10:39 | Consultation ---
Past History Past Medical History: No medical history Past Surgical History: Social history: smoking. denies: alcohol abuse, IV drug use Family history: diabetes (in mother), hypertension Medications and Allergies Allergies Allergy/AdvReac Type Severity Reaction Status Date / Time Penicillins Allergy Unknown Verified 11/23/19 13:22 Home Medications Medication Instructions Recorded Confirmed Last Taken Type Aspirin [Aspirin BABY CHEW TAB] 81 mg PO QDAY #7 tab.chew 08/23/20 Unknown Rx Nicotine [Habitrol] 14 mg TD DAILY #30 patch 08/23/20 Unknown Rx Active Meds: Active Medications Acetaminophen (Acetaminophen 325 Mg Tab) 650 mg PO Q4H PRN PRN Reason: Pain MILD(1-3)/Fever >100.5/MAX Albuterol (Albuterol 2.5 Mg/3 Ml Nebu) 2.5 mg IH Q4HRT PRN PRN Reason: Shortness Of Breath Alprazolam (Alprazolam 0.25 Mg Tab) 0.25 mg PO Q8H PRN PRN Reason: Anxiety Enoxaparin Sodium (Enoxaparin 40 Mg/0.4 Ml Inj) 40 mg SUB-Q DAILY [facility]; Protocol Last Admin: 08/23/20 09:07 Dose: 40 mg Documented by: Famotidine (Famotidine 20 Mg/2 Ml Inj) 20 mg IV BID [facility] Last Admin: 08/23/20 09:07 Dose: 20 mg Documented by: Metoclopramide HCl (Metoclopramide 10 Mg/2 Ml Inj) 10 mg IV Q6H PRN PRN Reason: Nausea And Vomiting Ondansetron HCl (Ondansetron 4 Mg/2 Ml Inj) 4 mg IV Q8H PRN PRN Reason: Nausea And Vomiting Sodium Chloride (Sodium Chloride 0.9% 10 Ml Flush Syringe) 10 ml IV BID [facility] Last Admin: 08/23/20 09:08 Dose: 10 ml Documented by: Sodium Chloride (Sodium Chloride 0.9% 10 Ml Flush Syringe) 10 ml IV PRN PRN PRN Reason: LINE FLUSH Tramadol HCl (Tramadol 50 Mg Tab) 50 mg PO Q4H PRN PRN Reason: Pain, Moderate (4-6) Physical Examination Vital Signs Temp Pulse Resp BP Pulse Ox 98.9 F 101 H 18 131/88 98 08/22/20 15:33 08/22/20 15:33 08/22/20 15:33 08/22/20 15:33 08/22/20 15:33 Results 08/23/20 05:55 08/23/20 05:55 Cardiac Enzymes 08/22/20 08/23/20 Range/Units 16:28 05:55 AST 23 19 (5-40) units/L Lipids 08/22/20 Range/Units 22:58 Triglycerides 60 (2-149) mg/dL Cholesterol 197 (50-199) mg/dL HDL Cholesterol 77 H (40-59) mg/dL Cholesterol/HDL Ratio 2.55 % CBC 08/22/20 08/22/20 08/23/20 Range/Units 16:28 22:58 05:55 WBC 8.8 7.6 6.9 (4.5-11.0) K/mm3 RBC 5.35 H 5.05 H 5.19 H (3.65-5.03) M/mm3 Hgb 12.7 11.9 12.3 (10.1-14.3) gm/dl Hct 39.3 36.7 38.4 (30.3-42.9) % Plt Count 250 233 217 (140-440) K/mm3 Lymph # (Auto) 2.0 2.7 2.1 (1.2-5.4) K/mm3 [place] # (Auto) 0.6 0.5 0.6 (0.0-0.8) K/mm3 Eos # (Auto) 0.1 0.2 0.2 (0.0-0.4) K/mm3 Baso # (Auto) 0.0 0.0 0.0 (0.0-0.1) K/mm3 Comprehensive Metabolic Panel 08/22/20 08/22/20 08/23/20 Range/Units 16:28 22:58 05:55 Sodium 138 138 137 (137-145) mmol/L Potassium 4.0 4.0 4.0 (3.6-5.0) mmol/L Chloride 101.5 104.3 104.5 (98-107) mmol/L Carbon Dioxide 27 20 L D 22 (22-30) mmol/L BUN 8 8 7 (7-17) mg/dL Creatinine 0.7 0.6 0.7 (0.6-1.2) mg/dL Glucose 97 97 87 (65-100) mg/dL Calcium 9.5 9.3 9.1 (8.4-10.2) mg/dL AST 23 19 (5-40) units/L ALT 17 15 (7-56) units/L Alkaline Phosphatase 98 88 (35-129) units/L Total Protein 7.3 7.0 (6.3-8.2) g/dL Albumin 4.4 4.0 (3.9-5) g/dL Assessment and Plan full consult dictated d/w Dr. Wick
[2020-08-23 10:52] LABS: Creatine Kinase MB 2.3 ng/mL (0.0-4.0)
--- NOTE | 2020-08-23 11:23 | Consultation ---
REFERRING PHYSICIAN: Hospitalist service, Dr. Wick. REASON FOR CONSULTATION: Advice and opinion regarding chest pain. HISTORY OF PRESENT ILLNESS: The patient is a very pleasant 39-year-old -Citizen Of [place] female with no significant past medical history, who was brought to the Emergency Room for chest pain. She works at [employer] in [place]. Lives in [place]. No primary care doctor. Had a baby 9 months ago, was considered high risk, was started on Lovenox, but states she never stated, had no issues with her . She states that she had sharp chest pain alleviated last night. No further chest pain. States she feels great. She was seen in the echo lab. She says she has some anxiety and continues to smoke. No fevers, chills, nausea or vomiting. States she feels back to normal great. MEDICATIONS: No home medications. ALLERGIES: PENICILLIN. Inpatient medications are reviewed. REVIEW OF SYSTEMS: As per HPI. PHYSICAL EXAMINATION: VITAL SIGNS: Blood pressure is 115/60. She is afebrile. Tele reveals sinus rhythm in the 50s, afebrile. O2 sat is 99% on room air. HEENT: Sclerae icteric, pale. NECK: Supple, no masses, no JVD. CHEST: Clear to auscultation bilaterally. Good air movement. CARDIOVASCULAR: Regular S1, S2. ABDOMEN: Soft, nontender, nondistended. Normoactive bowel sounds in 4 quadrants. No mass or bruits. EXTREMITIES: No cyanosis, clubbing, edema. Good peripheral pulses. SKIN: Intact. No rashes. DIAGNOSTIC DATA: ECG shows normal sinus rhythm, nonspecific ST-T wave changes. Chest x-ray is essentially normal per Radiology. LABORATORY DATA: Troponin x 1 is negative. test is negative. LFTs and BMP is normal. Total cholesterol is 197, LDL 117, HDL 77. D-dimer is normal. CBC is unremarkable. Echo as reviewed by myself preliminarily reveals [id number] concentric left ventricular hypertrophy with normal chamber size and systolic performance. No significant valvulopathy is identified. No pericardial effusion. ASSESSMENT: In summary, the patient is a pleasant 39-year-old -Citizen [place] female: Chest pain with mostly atypical features. Cardiac enzymes negative x 1. EKG without acute ST changes. Echocardiogram unremarkable. She is now chest pain free. She states she feels much better. Stress test not available today. At this point, we will check a second troponin to make sure she is chest pain free. If so, may be discharged on baby aspirin. Follow up in our office for stress test. On long discussion with the patient, she agrees to plan of care, also discussed with Dr. Wick. JOB# [id number] SBM/NTS
== END 2020-08-23 15:45 | disposition home or self-care (01) ==
LOC: ED 15:25 → 4A 21:25
PROVIDERS: ADMIT Internal Medicine Geriatric Medicine; ATTEND Internal Medicine
DX: R07.89 Other chest pain (principal); F41.9 Anxiety disorder, unspecified; F17.210 Nicotine dependence, cigarettes, uncomplicated; Z98.891 History of uterine scar from previous surgery; Z79.899 Other long term (current) drug therapy
CPT/HCPCS: 36415; 71046; 80053; 80061; 82550; 82553; 83036; 84484; 84703; 85025; 85379; 87641; 93005; 93306; 96372; 96374; 96375; 96376; 99285; 99406; G0378; J1650; J2405; J3010; 80048

== ENCOUNTER 2020-10-17 08:09 | Outpatient (CLI) | payer MEDICAID ==
--- NOTE | 2020-10-17 10:15 | Treadmill Report ---
STRESS TEST ORDERING PHYSICIAN: Dr. Dilma Tong. A 40-year-old female with atypical chest pain. Baseline EKG, sinus rhythm with no ST abnormalities. Baseline heart rate 65, baseline blood pressure 120/55. The patient walked on Andre protocol for 6 minutes 45 seconds, achieved a max heart rate 161, which is 88% max predicted heart. Peak blood pressure is 187/89. The patient had no EKG changes or arrhythmia suggestive of ischemia during the peak of exercise, stopped secondary to shortness of breath. SUMMARY: 1. Negative treadmill EKG. 2. Fair exercise capacity 6 minutes 45 seconds Andre protocol. 3. No exaggerated blood pressure response to exercise, no EKG changes or arrhythmia suggestive of ischemia. [facility]# [id number] SYLVIA/ELVA
== END 2020-10-17 08:10 | disposition home or self-care (01) ==
LOC: CARD 08:09
PROVIDERS: ATTEND Internal Medicine
DX: R07.89 Other chest pain (principal); F41.9 Anxiety disorder, unspecified
CPT/HCPCS: 93017